=== PATIENT | male | born 1965 | race Caucasian/White ===

== ENCOUNTER → 2018-09-07 | Outpatient (CLI) | payer BC ==
--- NOTE | 2018-09-07 13:38 | XR ---
EXAMINATION TYPE: XR lumbar spine 2 or 3V DATE OF EXAM: 09/07/2018 CLINICAL HISTORY: Chronic low back pain on and off into left leg TECHNIQUE: Frontal and lateral images of the lumbar spine are obtained. COMPARISON: None FINDINGS: There are 5 lumbar type vertebral bodies identified. The lumbar spine shows satisfactory alignment without evidence of acute fracture or dislocation. Mild disc space narrowing L5-S1 level ot herwise vertebral body heights and disk space heights are within normal limits. Some vascular calcifi cation overlying abdominal aorta is noted. IMPRESSION: As above.
== END | disposition home or self-care (01) ==
LOC: RADXRYALE 10:23
PROVIDERS: ATTEND Family Medicine
DX: M99.73 Connective tissue and disc stenosis of intervertebral foramina of lumbar region (principal); M99.74 Connective tissue and disc stenosis of intervertebral foramina of sacral region
CPT/HCPCS: 72100

== ENCOUNTER → 2022-03-15 | Day surgery (SDC) | payer BC ==
[2022-03-10 15:48] VITALS: BMI 25.4
[~2022-03-15] MED LIST: LACTATED RINGERS 1,000 ML IV SCH; LIDOCAINE 1% (10MG/ML) FOR IV START INTRADERMA PRN; LIDOCAINE 2% INJ 20 MG/ML (2 ML VIAL) ONE; PROPOFOL 10 MG/ML 20 ML VIAL IV ONE
[2022-03-15 09:35] VITALS: TEMP 97.5
--- NOTE | 2022-03-15 10:32 | P.PCN ---
Date of Procedure: 03/15/22 Procedure(s) Performed: BRIEF HISTORY: Patient is a 56-year-old pleasant male scheduled for an elective colonoscopy as a part of screening for colon cancer/positive cologuard PROCEDURE PERFORMED: Colonoscopy with biopsy. PREOPERATIVE DIAGNOSIS: Screening for colon cancer/positive cologuard. IV sedation per Anesthesia. PROCEDURE: After informed consent was obtained, the patient, was brought into the endoscopy unit. IV sedation was administered by Anesthesia under continuous monitoring. Digital rectal examination was normal. Initially the Olympus CF-160 flexible video colonoscope was then inserted in the rectum, gradually advanced into the cecum without any difficulty. Careful examination was performed as the scope was gradually being withdrawn. Ileocecal valve and the appendiceal orifice were visualized and appeared normal. Prep was excellent. Mucosa of the cecum, ascending colon, transverse colon, descending colon, normal. The sigmoid: There was a 5 mm sessile polyp removed by cold biopsy. Rest of the sigmoid colon, and rectum appeared normal. Retroflexion was performed in the rectum and no lesions were seen. The patient tolerated the procedure well. IMPRESSION: 5 mm sigmoid: Polyp status post cold biopsy Rest of the colon appeared normal RECOMMENDATIONS: Findings of this examination were discussed with the patient as well as his family. He was advised to follow with the biopsy results. If the biopsy result adenoma he can have a repeat colonoscopy in 5 years..
[2022-03-15 11:04] VITALS: BP 124/72; PULSE 55; RESP 16
== END ==
LOC: ORWHC2ENDO 08:55
PROVIDERS: ATTEND Internal Medicine Gastroenterology
DX: K63.5 Polyp of colon (principal); K21.9 Gastro-esophageal reflux disease without esophagitis; F17.210 Nicotine dependence, cigarettes, uncomplicated; Z79.899 Other long term (current) drug therapy
CPT/HCPCS: 88305; 45380; J2704; J2001

== ENCOUNTER → 2022-10-20 | Outpatient (CLI) | payer BC ==
--- NOTE | 2022-10-20 10:07 | CTL ---
EXAMINATION TYPE: CT Low Dose Lung DATE OF EXAM ORDERED: 10/20/2022 HISTORY: F17.210 NICOTINE DEPENDENCE, CIGARETTES, UNCOMPLI. Current smoker, 34 pack year history. Emily g cancer screening CT DLP: 88.[address] CTDI: 2.3 mGy Automated exposure control for dose reduction was used. SCREENING VISIT: First screening visit COMPARISON: None TECHNIQUE: Low dose computed tomography scan was performed through the chest at 1 mm thick sections a nd reconstructed images in multiple planes at 1 mm and [address] DIAGNOSTIC QUALITY: Satisfactory FINDINGS: LUNG NODULES: There is a 5 mm nodule along the minor fissure favored to represent an intrafissural ly mph node (series 6, image 41). LUNGS: COPD: Severity: Mild Fibrosis: Severity: None Lymph nodes: None Other findings: None RIGHT PLEURAL SPACE: Effusion: None Calcification: None Thickening: None Pneumothorax: None LEFT PLEURAL SPACE: Effusion: None Calcification: None Thickening: None Pneumothorax: None HEART: Heart Size: Normal Coronary Calcification: None Pericardial Effusion: None OTHER FINDINGS: Upper abdomen: Left adrenal gland 1.4 cm nodule with a Hounsfield unit of 9 consistent with a lipid r ich adenoma. Bony thorax: None Supraclavicular region: None Other: Minimal bilateral gynecomastia. There is a 1.3 cm possible pill within the distal esophagus. IMPRESSION: 1. Right midlung 5 mm nodule favored to represent an intrafissural lymph node. Otherwise no suspicio us pulmonary nodules. 2. Mild COPD changes. 3. Left adrenal gland 1.4 cm lipid rich benign adenoma. CT LUNG RAD AND CT CHEST RECOMMENDATION: Lung-Rad 2 Benign Appearance or Behavior: Continue annual sc reening with LDCT in 12 months. S Modifier (other clinically significant findings): None
== END | disposition home or self-care (01) ==
LOC: RADCTMAIN 09:30
PROVIDERS: ATTEND Internal Medicine Hematology & Oncology
DX: Z12.2 Encounter for screening for malignant neoplasm of respiratory organs (principal); D35.02 Benign neoplasm of left adrenal gland; J44.9 Chronic obstructive pulmonary disease, unspecified; F17.210 Nicotine dependence, cigarettes, uncomplicated
CPT/HCPCS: 71271

== ENCOUNTER → 2023-01-13 | Outpatient (CLI) | payer BC ==
--- NOTE | 2023-01-13 08:14 | MR ---
EXAMINATION TYPE: MR lumbar spine wo con DATE OF EXAM: 01/13/2023 6:32 AM CLINICAL INDICATION:Male, 57 years old with history of M51.36 INTERVERTEBRAL DISC DEGENERATION; PHH, Lower back pain, LLE radiculopathy. COMPARISON: None TECHNIQUE: Multi planar, multi sequence imaging was performed utilizing: T1-weighted, T2-weighted, a nd turbo inversion recovery imaging of the lumbar spine. IV Contrast: cc . (None if empty) FINDINGS: Alignment: The lumbar vertebral bodies have preserved heights and alignment. Cord: The conus medullaris and the distal spinal cord appear unremarkable with regards to their signa l intensity and morphology. Bones/Discs: Mild degeneration changes throughout the spine with osteophyte formation and facet joint arthropathy. Intervertebral disc signal is maintained. T12-L1: No evidence of significant spinal canal stenosis or neural foraminal stenosis. L1-L2: No evidence of significant spinal canal stenosis or neural foraminal stenosis. L2-L3: No evidence of significant spinal canal stenosis or neural foraminal stenosis. L3-L4: No evidence of significant spinal canal stenosis or neural foraminal stenosis. L4-L5: No evidence of significant spinal canal stenosis or neural foraminal stenosis. L5-S1: There is a disc extrusion in the central and left central region with inferior migration up to 16 mm. This displaces the exiting left nerve. The joint arthropathy with mild neural foraminal steno sis. No significant spinal canal or neural foraminal stenosis in the remainder of the visualized levels. Other findings: None. IMPRESSION: 1. L5-S1 left central and central disc extrusion with inferior migration of disc material displaces the exiting left nerve. 2. Mild multilevel disc degeneration changes.
== END | disposition home or self-care (01) ==
LOC: RADMRIMAIN 05:52
PROVIDERS: ATTEND Family Medicine
DX: M51.16 Intervertebral disc disorders with radiculopathy, lumbar region (principal); M51.27 Other intervertebral disc displacement, lumbosacral region
CPT/HCPCS: 72148

== ENCOUNTER → 2023-10-23 | Outpatient (CLI) | payer BC ==
--- NOTE | 2023-10-23 09:37 | CTL ---
EXAMINATION TYPE: CT Low Dose Lung DATE OF EXAM ORDERED: 10/23/2023 HISTORY: 57-year-old male smoker, lung remaining, 35 pack-year history. Personal history of lymphoma. . Lung cancer screening CT DLP: 105.[address] CTDI: 2.8 mGy Automated exposure control for dose reduction was used. SCREENING VISIT: Annual follow-up COMPARISON: 10/20/2022 TECHNIQUE: Low dose computed tomography scan was performed through the chest with coronal and sagitta l reconstructions. CT DIAGNOSTIC QUALITY: Satisfactory FINDINGS: The heart is normal size without pericardial effusion. Aorta normal caliber with minimal atherosclerotic arch calcifications and conventional arch vessel br anching anatomy. A few prominent but nonenlarged axillary lymph nodes remain unchanged. Otherwise, no thoracic lymphad enopathy by CT size criteria. Mild emphysematous change. No consolidation or pleural effusion. Tiny 2 mm pulmonary nodule lateral left upper lobe, axial image 70 is unchanged. 4 mm an adjacent 5 mm pulmonary nodule anterior right lower lung, axial image 196 and 190 remain unch anged. 5 mm posterior perihilar nodule on the right, axial image 138 is unchanged. No new/suspicious pulmonary nodule is identified. Visualized upper abdomen shows no gross abnormal. Bones: Mild degenerative disc disease lower thoracic spine. IMPRESSION: 1. Lung RADS 2, benign. A few scattered 5 mm and smaller pulmonary nodules are unchanged. 2. COPD with mild emphysema. Recommend smoking cessation. CT LUNG RAD AND CT CHEST RECOMMENDATION: Lung-Rad 2 Benign Appearance or Behavior: Continue annual sc reening with LDCT in 12 months. S Modifier (other clinically significant findings): None
== END | disposition home or self-care (01) ==
LOC: RADCTMAIN 06:21
PROVIDERS: ATTEND Internal Medicine Hematology & Oncology
DX: Z12.2 Encounter for screening for malignant neoplasm of respiratory organs (principal); J43.9 Emphysema, unspecified; J44.9 Chronic obstructive pulmonary disease, unspecified; R91.8 Other nonspecific abnormal finding of lung field; F17.210 Nicotine dependence, cigarettes, uncomplicated; Z85.72 Personal history of non-Hodgkin lymphomas
CPT/HCPCS: 71271

== ENCOUNTER → 2024-04-26 | Outpatient (CLI) | payer BC ==
--- NOTE | 2024-04-26 07:41 | CT ---
EXAMINATION TYPE: CT iac wo con DATE OF EXAM: 04/26/2024 COMPARISON: NONE HISTORY: Rt ear cholesteatoma CT DLP: 150 mGycm. Automated Exposure Control for Dose Reduction was Utilized. TECHNIQUE: CT scan of internal auditory canal is performed without contrast, thin cut axial images ar e obtained, coronal reformatted images are also reviewed. FINDINGS: Right sided mastoid and middle ear surgical change is present. Right middle ear ossicles ar e absent. There is mild to moderate peripheral soft tissue density at site of surgery favoring scar t issue but difficult to accurately assess without prior comparison. Mastoid air cells show no evidenc e of abnormal opacification on the left. Patent left external auditory canal. The middle ear ossicles are satisfactory on the left. There is no evidence of suspicious surrounding soft tissue density to suggest cholesteatoma on the left. The scutum is preserved. The cochlea and the semicircular canals are symmetric and unremarkable. Vestibular aqueduct and inte rnal carotid canal appear unremarkable. Temporomandibular joints are maintained bilaterally. Visualized paranasal sinuses are grossly clear. Visualized portion brain parenchyma is felt within normal limits. IMPRESSION: No significant abnormality seen on the left. Posttreatment change on the right is present . Peripheral mild to moderate soft tissue density is seen at the site of surgery favoring scar tissu e. Difficult to definitively exclude neoplasm without contrast and without prior comparison to correl ate. [facility], , 04/26/2024 7:39 AM
== END | disposition home or self-care (01) ==
LOC: RADCTMAIN 06:16
PROVIDERS: ATTEND Otolaryngology Otology & Neurotology
DX: H71.11 Cholesteatoma of tympanum, right ear (principal)
CPT/HCPCS: 70480